=== PATIENT | male | born 1950 | race Caucasian/White ===

== ENCOUNTER 2017-09-26 22:28 | Inpatient (IN) | payer OTHER ==
[~2017-09-26] VITALS: Ht 182.9 cm; Wt 102.2 kg
[~2017-09-26 22:28] MED LIST: ALEVE220 MG PO; ALPRAZOLAM0.5 MG PO; ASPIRIN EC325 MG PO; ATORVASTATIN CA20 MG PO; BENADRYL25 MG PO; ENALAPRIL MALEAT5 MG PO; FERROUS SULFAT325 MG PO; HYDROMORPHONE HC4 MG PO; LIPITOR10 MG PO; MELOXICAM7.5 MG PO; METAMUCIL POWD798 GM PO; NORCO 5/3251 TABLET PO; OMEPRAZOLE20 MG PO; SENNA-TIME S T1 EACH PO; SERTRALINE HCL50 MG PO; TYLENOL REGULA325 MG PO
[2017-09-27 06:10] VITALS: BP 127/63
[2017-09-27 11:43] VITALS: BP 113/65
[2017-09-27 16:45] VITALS: BP 130/64
[2017-09-27 21:10] VITALS: BP 126/65
[2017-09-27 23:47] VITALS: BP 109/61
[2017-09-28 04:45] VITALS: BP 146/81
[2017-09-28 06:00] LABS: HEMATOCRIT 36.8 % (38.0-50.0); MCV 90.9 FL (86-99)
[2017-09-28 07:53] VITALS: BP 158/78
[2017-09-28] MEDS ORDERED: OXYCONTIN10 MG PO (11:14)
[2017-09-28] MEDS ORDERED: CELECOXIB200 MG PO (11:14)
[2017-09-28 12:11] VITALS: BP 158/78
== END 2017-09-28 12:36 | disposition home or self-care (01) | DRG 483 ==
LOC: ENRESERV 22:28 → 2SOUTH 09-27 05:34 → ENRESERV 09-27 11:06 → 3EAST 09-27 11:07 → 2SOUTH 09-27 16:07 → ENPENDDIS 09-28 → 3EAST 09-28 12:36
PROVIDERS: Orthopaedic Surgery
PROC: 3E0T3BZ Introduction of Anesthetic Agent into Peripheral Nerves and Plexi, Percutaneous Approach (ICD-10-PCS; principal; 2017-09-27)
PROC: 0RRJ00Z Replacement of Right Shoulder Joint with Reverse Ball and Socket Synthetic Substitute, Open Approach (ICD-10-PCS; principal; 2017-09-27)
DX: M19.111 Post-traumatic osteoarthritis, right shoulder (principal); J44.9 Chronic obstructive pulmonary disease, unspecified; I10 Essential (primary) hypertension; K21.9 Gastro-esophageal reflux disease without esophagitis; F41.9 Anxiety disorder, unspecified; E78.00 Pure hypercholesterolemia, unspecified; F32.9 Major depressive disorder, single episode, unspecified; K59.00 Constipation, unspecified; Z96.612 Presence of left artificial shoulder joint; Z96.651 Presence of right artificial knee joint; Z87.891 Personal history of nicotine dependence
CPT/HCPCS: 73020; 85014; 85018; J0131; J0330; J0690; J1100; J1170; J2250; J2405; J2765; J2795; J3010; J7050